=== PATIENT | male | born 1990 | race Caucasian/White ===

== ENCOUNTER 2023-12-28 02:48 | Emergency (ER) | payer SELFPAY ==
[~2023-12-28] VITALS: Ht 188 cm; Wt 93.0 kg
[2023-12-28 03:02] VITALS: BP 97/48; PULSE 98; RESP 16; TEMP 97.4; O2SAT 98
== END 2023-12-28 04:05 | disposition home or self-care (01) ==
LOC: MED 02:48
DX: S00.83XA Contusion of other part of head, initial encounter (principal); Y04.0XXA Assault by unarmed brawl or fight, initial encounter; Y93.89 Activity, other specified; Y92.89 Other specified places as the place of occurrence of the external cause; Y99.8 Other external cause status
CPT/HCPCS: 70450; 99284